=== PATIENT | female | born 1945 | race Caucasian/White ===

== ENCOUNTER 2017-04-02 09:30 | Emergency (ER) | payer MEDICARE, OTHER ==
[~2017-04-02 09:30] MED LIST: ASPIR-LOW81 M1 PO; ATENOLOL50 M1 PO; FISH OIL 1,2001 EAC4 PO; HYDROCHLOROTHIA25 M1 PO; LISINOPRIL10 M1 PO; LOVASTATIN20 M2 PO; NORVASC2.5 M1 PO
[2017-04-02] MEDS ORDERED: NORCO 5-325 TA1 EACH PO (11:55)
== END 2017-04-02 12:53 ==
LOC: EDMED 09:30
DX: M25.561 Pain in right knee (principal); Z90.710 Acquired absence of both cervix and uterus; I10 Essential (primary) hypertension; Z79.82 Long term (current) use of aspirin; Z79.899 Other long term (current) drug therapy; F17.210 Nicotine dependence, cigarettes, uncomplicated